=== PATIENT | male | born 1960 | race Caucasian/White ===

== ENCOUNTER 2016-10-02 09:40 | Day surgery (SDC) | payer OTHER ==
[~2016-10-02] VITALS: Ht 172.7 cm; Wt 76.9 kg
[2016-10-02 10:13] VITALS: Ht 172.7 cm; Wt 76.9 kg
[2016-10-02] MEDS ORDERED: ibuprofen (10:26)
[2016-10-02 10:45] VITALS: BP 118/77; PULSE 70; RESP 16
[2016-10-02 11:50] VITALS: BP 107/68; PULSE 68; RESP 12
[2016-10-02] MEDS ORDERED: FENTAnyl 50 MCG/ML VIAL ONE (12:17)
[2016-10-02] MEDS ORDERED: MIDAZOLAM 1 MG/ML 2 ML INJ ONE ×3 (12:17)
--- NOTE | 2016-10-05 12:06 | GILP ---
DATE OF PROCEDURE: PROCEDURE: Screening colonoscopy. Rule out colon polyps. POSTOPERATIVE DIAGNOSIS: Normal examination. DESCRIPTION OF PROCEDURE: After informed written consent is obtained.=m Patient was given 6 mg of Versed and 100 mcg of fentanyl as intravenous anesthesia. When the patient became somnolent, Olympus video colonoscope was introduced into the rectum and scope was advanced all the way to the cecum. He had a redundant and tortuous colon, however, cecum was reached. No polyps and no other mucosal abnormalities detected. Endoscope at this time was withdrawn. On the way out, no hemorrhoids were noted and the procedure was terminated. PLAN: Recommend high-fiber diet, repeat colonoscopy in 10 years. Dictated By: Adam Berger MD /[email or web address] /Document#: [id number]
== END 2016-10-02 19:34 | disposition home or self-care (01) ==
LOC: GIL 09:40
PROVIDERS: ATTEND Internal Medicine Gastroenterology
DX: Z12.11 Encounter for screening for malignant neoplasm of colon (principal)
CPT/HCPCS: 45378; J2250; J3010; Z7610